=== PATIENT | male | born 1995 | race African-American/Black ===

== ENCOUNTER 2022-11-22 21:12 | Emergency (ER) | payer MEDICAID ==
[2022-11-22 21:26] VITALS: BP 131/81; PULSE 61
== END 2022-11-22 22:18 | disposition home or self-care (01) ==
LOC: JP.ED 21:12
DX: S46.912A Strain of unspecified muscle, fascia and tendon at shoulder and upper arm level, left arm, initial encounter (principal); Z86.16 Personal history of COVID-19; X50.9XXA Other and unspecified overexertion or strenuous movements or postures, initial encounter; Y93.64 Activity, baseball
CPT/HCPCS: 99283